=== PATIENT | male | born 1980 | race Caucasian/White ===

== ENCOUNTER 2019-01-14 12:49 | Emergency (ER) | payer SELFPAY ==
[~2019-01-14] VITALS: Ht 195.6 cm; Wt 79.4 kg
[2019-01-14 13:16] VITALS: BP 119/72
[2019-01-14] MEDS ORDERED: cefTRIAXone SOD 1,000 MG VL IM ONE (13:45)
[2019-01-14] MEDS ORDERED: BENZOCAINE (DENTAL) 20 % SPRAY 60ML MT ONE (13:45)
== END 2019-01-14 14:11 | disposition home or self-care (01) ==
LOC: ER 12:54
DX: K04.7 Periapical abscess without sinus (principal); F17.210 Nicotine dependence, cigarettes, uncomplicated
CPT/HCPCS: 96372; 99283; J0696